=== PATIENT | male | born 1975 | race Caucasian/White ===

== ENCOUNTER 2023-03-25 08:27 | Outpatient (CLI) | payer BC, SELFPAY ==
--- NOTE | 2023-03-25 09:00 | CRLHL7_ITS ---
For Patients: As a result of the Century Cures Act, medical imaging exams and procedure reports are released immediately into your electronic medical record. You may view this report before your referring provider. If you have questions, please contact your health care provider. Indication: Injury 3 weeks ago, continued pain Technique: Noncontrast CT right elbow Please note that all CT scans at this facility use dose modulation, iterative reconstruction, and/or weight-based dosing when appropriate to reduce radiation dose to as low as reasonably achievable. Comparison: Plain films 03/14/2023 Findings: Curvilinear spur at medial humeral epicondyle. Incompletely ossified spur at the lateral humeral epicondyle. The radial head is intact. Small chronic ossicle adjacent to the coronoid process. Intact posterior olecranon. Small posterior olecranon spur. No joint effusion. Impression: No fracture deformity. No synovitis. Mild multifocal chronic enthesopathy. Please note that all CT scans at this facility use dose modulation, iterative reconstruction, and/or weight-based dosing when appropriate to reduce radiation dose to as low as reasonably achievable. Dictated by Ochoa Moon MD @ 03/25/2023 9:59:36 AM (Electronically Signed)
== END 2023-03-25 08:28 | disposition home or self-care (01) ==
LOC: CT 08:27
PROVIDERS: PCP Family Medicine; Visit Provider Family Medicine
DX: M25.521 Pain in right elbow (principal); M77.9 Enthesopathy, unspecified; S59.909A Unspecified injury of unspecified elbow, initial encounter
CPT/HCPCS: 73200

== ENCOUNTER 2023-05-31 08:30 | Outpatient (CLI) | payer BC, SELFPAY | END 2023-05-31 08:31 | disposition home or self-care (01) | PROVIDERS: PCP Family Medicine; Visit Provider Family Medicine | DX: E78.2 Mixed hyperlipidemia (principal); Z12.5 Encounter for screening for malignant neoplasm of prostate | CPT/HCPCS: 80061; 84153 ==

== ENCOUNTER 2024-09-25 08:32 | Outpatient (CLI) | payer BC, SELFPAY | END 2024-09-25 08:33 | disposition home or self-care (01) | PROVIDERS: PCP Family Medicine; Visit Provider Family Medicine | DX: E78.2 Mixed hyperlipidemia (principal) | CPT/HCPCS: 80048; 80061 ==

== ENCOUNTER 2024-11-18 11:08 | Outpatient (CLI) | payer BC, SELFPAY | END 2024-11-18 11:09 | disposition home or self-care (01) | PROVIDERS: PCP Family Medicine; Visit Provider Family Medicine | DX: M51.369 Other intervertebral disc degeneration, lumbar region without mention of lumbar back pain or lower extremity pain (principal); Z12.5 Encounter for screening for malignant neoplasm of prostate | CPT/HCPCS: 80053; G0103 ==

== ENCOUNTER 2025-06-09 08:25 | Outpatient (CLI) | payer BC, SELFPAY | END 2025-06-09 08:26 | disposition home or self-care (01) | LOC: LKVREF 08:28 | PROVIDERS: PCP Family Medicine; Visit Provider Family Medicine | DX: E78.2 Mixed hyperlipidemia (principal) | CPT/HCPCS: 80061 ==